=== PATIENT | male | born 1975 | race Hispanic/Latino ===

== ENCOUNTER 2017-08-03 00:04 | Emergency (ER) | payer SELFPAY ==
[~2017-08-03] VITALS: Ht 172.7 cm; Wt 96.6 kg
[~2017-08-03 00:04] MED LIST: AMLODIPINE BESY10 MG PO; ATORVASTATIN CA20 MG PO; CLONAZEPAM0.5 M1 PO; FAMOTIDINE20 MG PO; HYDRALAZINE HCL25 MG PO; HYDROCHLOROTHIA25 MG PO; LISINOPRIL10 MG PO; METOPROLOL SUCC50 MG PO
--- OUTSIDE RECORDS SUMMARY | 2017-08-03 00:06 | XMS REPORT ---
Author Author [facility] Address Unknown Phone Unavailable Care Team Providers Care Reinsurance Clerk Name Role Phone VANE ROSARIO Unavailable Unavailable Problems This patient has no known problems. Allergies, Adverse Reactions, Alerts This patient has no known allergies or adverse reactions. Medications This patient has no known medications. Results Test Description Test Time Test Comments Text Results Atomic Results Result Comments CHEST [address] [address] Patient Name: SIMA HUNTER MR #: [id number] : 1975 Age/Sex: 41/M Req #: [id number] Adm Physician: Ordered by: VANE ROSARIO MD Report #: [id number] Location: ER Room/Bed: Procedure: [id number] DX/CHEST 2 VIEWS Exam Date: 02/28/17 Exam Time: 1954 REPORT STATUS: Signed EXAMINATION: CHEST 2 VIEWS INDICATION: Cough, fever COMPARISON: None FINDINGS: TUBES and LINES: None. LUNGS: Lungs are well inflated. Lungs are clear. There is no evidence of pneumonia or pulmonary edema. PLEURA: No pleural effusion or pneumothorax. HEART AND MEDIASTINUM: The cardiomediastinal silhouette is unremarkable. BONES AND SOFT TISSUES: No acute osseous lesion. Soft tissues are unremarkable. UPPER ABDOMEN: No free air under the diaphragm. IMPRESSION: No acute thoracic abnormality. Signed by: Dr. Scar Yuen M.D. on 02/28/2017 8:30 PM Dictated By: SCAR LYNN MD 29 Transcribed By: KENISHA on 02/28/172029 COPY TO: VANE ROSARIO MD
== END 2017-08-03 00:23 | disposition left against medical advice (07) ==
LOC: ER 00:04
DX: I10 Essential (primary) hypertension (principal)

== ENCOUNTER 2021-01-30 23:25 | Emergency (ER) | payer SELFPAY ==
[~2021-01-30] VITALS: Ht 172.7 cm; Wt 96.6 kg
[2021-01-31] MEDS ORDERED: AMLODIPINE BESYLATE 10 MG TAB PO ONE ×2 (00:30)
[2021-01-31] MEDS ORDERED: AMLODIPINE BESYLATE 5 MG TAB ONE (00:47)
[2021-01-31 01:44] LABS: BASOPHILS # (AUTO) 0.1 (0.0-0.1); BASOPHILS % 0.8 % (0.0-1.0); EOSINOPHILS # (AUTO) 0.2 (0.0-0.4); EOSINOPHILS % 2.5 % (0.0-6.0); HEMATOCRIT 47.3 % (38.2-49.6); HEMOGLOBIN 15.5 g/dL (14.0-18.0); LYMPHOCYTES # (AUTO) 2.1 (1.0-3.2); MEAN CORPUSCULAR HGB CONC 32.8 g/dL (31-35); MEAN CORPUSCULAR VOLUME 79.2 fL (81-99); MONOCYTES # (AUTO) 0.6 (0.2-0.8); MONOCYTES % 8.6 % (4.4-11.3); NEUTROPHILS # (AUTO) 4.1 (2.1-6.9); NEUTROPHILS % 57.8 % (38.7-80.0); PLATELET COUNT 224 x10e3/uL (140-360); RED BLOOD COUNT 5.97 x10e6/uL (4.3-5.7); RED CELL DISTRIBUTION WIDTH 12.6 % (11.7-14.4)
[2021-01-31] MEDS ORDERED: AMLODIPINE BESY10 MG PO (02:07)
[2021-01-31 02:23] LABS: ALBUMIN/GLOBULIN RATIO 1.2 (0.8-2.0); ANION GAP 15.8 mmol/L (8-16); CALCIUM 8.6 mg/dL (8.4-10.2); CREATININE, SERUM 1.69 mg/dL (0.72-1.25)
[2021-01-31 02:26] LABS: POTASSIUM 2.8 mmol/L (3.5-5.1)
[2021-01-31 06:46] VITALS: BP 198/102
== END 2021-01-31 02:00 | disposition home or self-care (01) ==
LOC: ER 01-31 00:35
DX: I12.9 Hypertensive chronic kidney disease with stage 1 through stage 4 chronic kidney disease, or unspecified chronic kidney disease (principal); N18.9 Chronic kidney disease, unspecified
CPT/HCPCS: 36415; 80053; 84484; 85025; 93005; 99283

== ENCOUNTER 2021-08-14 15:39 | Emergency (ER) | payer SELFPAY ==
[~2021-08-14] VITALS: Ht 172.7 cm; Wt 96.6 kg
[2021-08-14] MEDS ORDERED: SODIUM CHLORIDE 0.9% 1000ML 500 ML IV STA (16:22)
[2021-08-14] MEDS ORDERED: LABETALOL HCL 5 MG/ML 20ML VIAL IV STA (16:22)
[2021-08-14] MEDS ORDERED: ASPIRIN 81 MG CHEW TAB PO ONE (16:30)
[2021-08-14 16:44] LABS: BASOPHILS % 0.4 % (0.0-1.0); EOSINOPHILS # (AUTO) 0.1 (0.0-0.4); EOSINOPHILS % 0.7 % (0.0-6.0); HEMATOCRIT 51.9 % (38.2-49.6); HEMOGLOBIN 17.3 g/dL (14.0-18.0); LYMPHOCYTES # (AUTO) 0.8 (1.0-3.2); LYMPHOCYTES % 8.2 % (18.0-39.1); MEAN CORPUSCULAR HGB CONC 33.3 g/dL (31-35); MONOCYTES # (AUTO) 0.6 (0.2-0.8); MONOCYTES % 6.4 % (4.4-11.3); NEUTROPHILS # (AUTO) 8.3 (2.1-6.9); NEUTROPHILS % 84.1 % (38.7-80.0); PLATELET COUNT 218 x10e3/uL (140-360); RED BLOOD COUNT 6.65 x10e6/uL (4.3-5.7); RED CELL DISTRIBUTION WIDTH 13.2 % (11.7-14.4)
[2021-08-14 16:56] LABS: ANION GAP 15.1 mmol/L (8-16); CREATININE, SERUM 1.6 mg/dL (0.72-1.25); POTASSIUM 3.1 mmol/L (3.5-5.1)
[2021-08-14 16:58] LABS: INR 0.95; PARTIAL THROMBOPLASTIN TIME 27.7 seconds (23.8-35.5); PROTHROMBIN TIME 13.3 seconds (11.9-14.5)
[2021-08-14 17:03] LABS: CREATINE KINASE MB 1.1 ng/mL (0-5.0)
[2021-08-14] MEDS ORDERED: POTASSIUM CHLORIDE 10MEQ EA PO ONE (17:45)
[2021-08-14] MEDS ORDERED: LORAZEPAM 1 MG TAB PO ONE (18:00)
[2021-08-14] MEDS ORDERED: HYDRALAZINE HCL 20 MG/ML VIAL IV STA (18:38)
[2021-08-14 19:43] VITALS: BP 172/133
== END 2021-08-14 19:40 | disposition home or self-care (01) ==
LOC: ER 16:10
DX: R00.2 Palpitations (principal); I16.0 Hypertensive urgency; R94.31 Abnormal electrocardiogram [ECG] [EKG]; I10 Essential (primary) hypertension; N18.9 Chronic kidney disease, unspecified; K21.9 Gastro-esophageal reflux disease without esophagitis; E78.00 Pure hypercholesterolemia, unspecified; F41.9 Anxiety disorder, unspecified
CPT/HCPCS: 36415; 71045; 80053; 82550; 82553; 83880; 84484; 85025; 85610; 85730; 93005; 99284; J0360; J3490; J7030

== ENCOUNTER 2022-02-16 22:16 | Emergency (ER) | payer SELFPAY ==
[~2022-02-16] VITALS: Ht 172.7 cm; Wt 96.6 kg
[2022-02-16] MEDS ORDERED: ACETAMINOPHEN 325 MG TAB PO ONE (22:30)
[2022-02-16] MEDS ORDERED: SODIUM CHLORIDE 0.9% 1000ML 1,000 ML IV ONE (22:30)
[2022-02-16 22:45] LABS: BASOPHILS # (AUTO) 0.1 (0.0-0.1); BASOPHILS % 0.5 % (0.0-1.0); EOSINOPHILS # (AUTO) 0.2 (0.0-0.4); EOSINOPHILS % 2.5 % (0.0-6.0); HEMATOCRIT 49.3 % (38.2-49.6); HEMOGLOBIN 16.6 g/dL (14.0-18.0); LYMPHOCYTES # (AUTO) 2.6 (1.0-3.2); LYMPHOCYTES % 28.7 % (18.0-39.1); MEAN CORPUSCULAR HEMOGLOBIN 26.6 pg (28-32); MEAN CORPUSCULAR HGB CONC 33.7 g/dL (31-35); MEAN CORPUSCULAR VOLUME 78.9 fL (81-99); MONOCYTES # (AUTO) 0.7 (0.2-0.8); MONOCYTES % 7.8 % (4.4-11.3); NEUTROPHILS # (AUTO) 5.5 (2.1-6.9); NEUTROPHILS % 60.3 % (38.7-80.0); PLATELET COUNT 240 x10e3/uL (140-360); RED BLOOD COUNT 6.25 x10e6/uL (4.3-5.7); RED CELL DISTRIBUTION WIDTH 12.7 % (11.7-14.4)
[2022-02-16] MEDS ORDERED: LORAZEPAM 1 MG TAB PO PRN (22:45)
[2022-02-16 23:08] LABS: ALBUMIN 4.5 g/dL (3.5-5.0); ANION GAP 19.2 mmol/L (8-16); CALCIUM 9.5 mg/dL (8.4-10.2); CREATININE, SERUM 2.12 mg/dL (0.72-1.25); POTASSIUM 3.2 mmol/L (3.5-5.1)
[2022-02-16 23:15] LABS: CREATINE KINASE MB 1.1 ng/mL (0-5.0)
== END 2022-02-16 23:58 | disposition home or self-care (01) ==
LOC: ER 22:27
DX: R50.9 Fever, unspecified (principal); R00.2 Palpitations; I10 Essential (primary) hypertension; F41.9 Anxiety disorder, unspecified; Z20.822 Contact with and (suspected) exposure to COVID-19
CPT/HCPCS: 36415; 71045; 80053; 82550; 82553; 84484; 85025; 93005; 99284; J7030; U0002

== ENCOUNTER 2024-03-19 10:54 | Inpatient (IN) | payer SELFPAY ==
[2024-03-19] VITALS (15 sets, daily range): BP systolic 136–170; BP diastolic 89–107; PULSE 78–93; RESP 9–25; TEMP 97.9–98.2; O2SAT 84–94
[~2024-03-19] VITALS: Ht 172.7 cm; Wt 96.6 kg
[2024-03-19 11:21] LABS: BASOPHILS % 0.4 % (0.0-1.0); EOSINOPHILS # (AUTO) 0.1 (0.0-0.4); EOSINOPHILS % 1.9 % (0.0-6.0); HEMATOCRIT 48.6 % (38.2-49.6); HEMOGLOBIN 15.8 g/dL (14.0-18.0); LYMPHOCYTES % 14.5 % (18.0-39.1); MEAN CORPUSCULAR HEMOGLOBIN 25.8 pg (28-32); MEAN CORPUSCULAR HGB CONC 32.5 g/dL (31-35); MEAN CORPUSCULAR VOLUME 79.3 fL (81-99); MONOCYTES # (AUTO) 0.4 (0.2-0.8); MONOCYTES % 6.2 % (4.4-11.3); NEUTROPHILS # (AUTO) 5.2 (2.1-6.9); NEUTROPHILS % 76.7 % (38.7-80.0); PLATELET COUNT 220 x10e3/uL (140-360); RED BLOOD COUNT 6.13 x10e6/uL (4.3-5.7); RED CELL DISTRIBUTION WIDTH 13.2 % (11.7-14.4); WHITE BLOOD COUNT 6.77 x10e3/uL (4.8-10.8)
[2024-03-19] MEDS ORDERED: SODIUM CHLORIDE FLUSH 10 ML SYR IV PRN (11:30)
[2024-03-19 11:40] LABS: ALBUMIN 4.4 g/dL (3.5-5.0); ANION GAP 14.5 mmol/L (8-16); BILIRUBIN,TOTAL 0.5 mg/dL (0.2-1.2); CALCIUM 9.4 mg/dL (8.4-10.2); CREATININE, SERUM 2.23 mg/dL (0.72-1.25); POTASSIUM 3.5 mmol/L (3.5-5.1); TOTAL PROTEIN 8.6 g/dL (6.5-8.1)
[2024-03-19] MEDS: ONDANSETRON HCL INJ 2MG/ML 2ML 2 MG/ML VIAL IV STA (11:42)
[2024-03-19 11:46] LABS: TROPONIN I 0.01 ng/mL (0-0.300)
[2024-03-19] MEDS: NIFEDIPINE CR 30 MG TAB PO ONE (11:46)
[2024-03-19] MEDS: HYDRALAZINE HCL 20 MG/ML VIAL IV STA (12:37)
[2024-03-19] MEDS ORDERED: SODIUM CHLORIDE FLUSH 10 ML SYR INJ PRN (13:45)
[2024-03-19] MEDS: ONDANSETRON HCL INJ 2MG/ML 2ML 2 MG/ML VIAL IV PRN (14:01)
[2024-03-19] MEDS: NICARDIPINE 20MG/200ML PREMIX 200 ML IV SCH (14:04)
[2024-03-19] MEDS ORDERED: ZOLPIDEM TARTRATE 5 MG TAB PO PRN (14:30)
[2024-03-19] MEDS: METOCLOPRAMIDE HCL 10 MG/2ML VIAL IV ONE (14:50)
[2024-03-19] MEDS ORDERED: PHENAZOPYRIDINE HCL 100 MG TAB PO PRN (16:00)
[2024-03-19] MEDS ORDERED: ACETAMINOPHEN 325 MG TAB PO PRN (16:00)
[2024-03-19] MEDS ORDERED: ALBUTEROL/IPRATROPIUM 3 ML NEB NEB PRN (16:00)
[2024-03-19] MEDS ORDERED: HYDRALAZINE HCL 20 MG/ML VIAL IV PRN (16:00)
[2024-03-19] MEDS ORDERED: DEXTROSE 50% SYRINGE 50 ML IV PRN (16:00)
[2024-03-19] MEDS ORDERED: BENZONATATE 100 MG CAP PO PRN (16:00)
[2024-03-19] MEDS ORDERED: MELATONIN 5 MG TABLET PO PRN (16:00)
[2024-03-19] MEDS ORDERED: DIPHENHYDRAMINE HCL 25 MG CAP PO PRN (16:00)
[2024-03-19] MEDS ORDERED: LIDOCAINE 4% PATCH TP PRN (16:00)
[2024-03-19] MEDS ORDERED: DOCUSATE SODIUM 100 MG CAP PO PRN (16:00)
[2024-03-19] MEDS ORDERED: SIMETHICONE 80 MG CHEW PO PRN (16:00)
[2024-03-19] MEDS: MUPIROCIN 2% OINT 22 GM TUBE NS SCH (17:28)
[2024-03-19] MEDS: CARVEDILOL 12.5 MG TAB PO SCH (17:29)
[2024-03-19] MEDS: ATORVASTATIN 20 MG TAB PO SCH (20:55)
[2024-03-20] VITALS (30 sets, daily range): BP systolic 132–162; BP diastolic 82–102; PULSE 68–83; RESP 7–18; TEMP 98.1–98.4; O2SAT 85–97
[2024-03-20 07:30] LABS: BASOPHILS % 0.1 % (0.0-1.0); EOSINOPHILS % 0.1 % (0.0-6.0); HEMATOCRIT 44.4 % (38.2-49.6); HEMOGLOBIN 14.4 g/dL (14.0-18.0); LYMPHOCYTES % 11.1 % (18.0-39.1); MEAN CORPUSCULAR HEMOGLOBIN 25.9 pg (28-32); MEAN CORPUSCULAR HGB CONC 32.4 g/dL (31-35); MEAN CORPUSCULAR VOLUME 79.9 fL (81-99); MONOCYTES # (AUTO) 0.6 (0.2-0.8); NEUTROPHILS # (AUTO) 7.1 (2.1-6.9); NEUTROPHILS % 81.5 % (38.7-80.0); PLATELET COUNT 244 x10e3/uL (140-360); RED BLOOD COUNT 5.56 x10e6/uL (4.3-5.7); RED CELL DISTRIBUTION WIDTH 13.3 % (11.7-14.4); WHITE BLOOD COUNT 8.76 x10e3/uL (4.8-10.8)
[2024-03-20 07:57] LABS: CHOL/HDL RATIO 5.2 (3.9-4.7); MAGNESIUM 2.3 MG/DL (1.3-2.1); PHOSPHORUS 4.1 MG/DL (2.3-4.7)
[2024-03-20] MEDS: PANTOPRAZOLE SOD 40 MG TABEC PO SCH (08:01)
[2024-03-20] MEDS: VALSARTAN 160 MG TAB PO SCH (08:03)
[2024-03-20] MEDS: NIFEDIPINE CR 30 MG TAB PO SCH (08:04)
[2024-03-20 08:09] LABS: ALBUMIN 3.9 g/dL (3.5-5.0); ALBUMIN/GLOBULIN RATIO 1.1 (0.8-2.0); ANION GAP 15.2 mmol/L (8-16); BILIRUBIN,TOTAL 0.5 mg/dL (0.2-1.2); CREATININE, SERUM 2.63 mg/dL (0.72-1.25); TOTAL PROTEIN 7.6 g/dL (6.5-8.1)
[2024-03-20 08:16] LABS: POTASSIUM 3.2 mmol/L (3.5-5.1); THYROID STIMULATING HORMONE 1.355 uIU/mL (0.350-4.940)
[2024-03-20] MEDS ORDERED: DILTIAZEM 24HR180 MG PO (14:12)
[2024-03-20] MEDS ORDERED: COREG12.5 MG PO (14:12)
[2024-03-20] MEDS ORDERED: NIFEDIPINE ER30 M1 PO (14:12)
[2024-03-20] MEDS ORDERED: DIOVAN160 MG PO (14:12)
[2024-03-20] MEDS: POTASSIUM CHLORIDE 20 MEQ TAB CR PO ONE (14:37)
== END 2024-03-20 15:13 | disposition home or self-care (01) | DRG 305 ==
LOC: ER 10:59 → ERHOLD 13:34 → ICU 15:49
PROVIDERS: ADMIT Internal Medicine; ATTEND Internal Medicine
DX: I16.0 Hypertensive urgency (principal); N18.4 Chronic kidney disease, stage 4 (severe); I12.9 Hypertensive chronic kidney disease with stage 1 through stage 4 chronic kidney disease, or unspecified chronic kidney disease; E78.00 Pure hypercholesterolemia, unspecified; K21.9 Gastro-esophageal reflux disease without esophagitis; R11.10 Vomiting, unspecified; F32.A Depression, unspecified; F41.9 Anxiety disorder, unspecified; T46.1X6A Underdosing of calcium-channel blockers, initial encounter; Z91.128 Patient's intentional underdosing of medication regimen for other reason; Z90.49 Acquired absence of other specified parts of digestive tract
CPT/HCPCS: 36415; 70450; 80053; 80061; 83036; 83735; 84100; 84443; 84484; 85025; 93005; 94760; 94799; 99284; J0360; J2405; J2765